=== PATIENT | female | born 1990 | race Caucasian/White ===

== ENCOUNTER 2016-10-17 07:55 | Inpatient (IN) | payer OTHER ==
[~2016-10-17] VITALS: Ht 165.1 cm; Wt 132.9 kg
[2016-10-17] MEDS ORDERED: PROAIR HFA8.5 GM INH (08:21)
[2016-10-17] MEDS ORDERED: PRENATAL TABLE1 EAC2 PO (08:22)
[2016-10-17] MEDS ORDERED: SLOW FE142 MG PO (08:23)
[2016-10-17 08:56] LABS: ABSOLUTE BASOPHIL COUNT 0.1 /CUMM (0.0-0.2); ABSOLUTE EOSINOPHIL COUNT 0.1 /CUMM (0.0-0.7); ABSOLUTE GRANULOCYTE CT 5.1 /CUMM (1.4-6.5); ABSOLUTE LYMPH COUNT 1.5 /CUMM (1.2-3.4); ABSOLUTE MONOCYTE COUNT 0.6 /CUMM (0.10-0.60); BASOPHIL % 0.9 % (0.0-2.0); EOSINOPHIL % 1.2 % (0-5); GRANULOCYTE % 69.2 % (42.2-75.2); HEMATOCRIT 36.6 % (37-47); MEAN CORPUSCULAR HGB 29.3 PG (27.0-31.0); MEAN CORPUSCULAR HGB CONC 34.2 G/DL (33.0-37.0); MEAN CORPUSCULAR VOLUME 85.5 FL (81.0-99.0); MEAN PLATELET VOLUME 8.5 FL (7.4-10.4); PLATELET COUNT 232 /CUMM (130-400); RED BLOOD CELL CT 4.28 /CUMM (4.20-5.40); WHITE BLOOD CELL COUNT 7.4 /CUMM (4.8-10.8)
--- NOTE | 2016-10-17 09:26 | PN- Obstetrical ---
Subjective Subjective: NO COMPLAINTS Objective Last 24 Hrs of Vital Signs/I&O Intake & Output 10/17 1600 10/17 0800 10/17 0000 Intake Total Output Total Balance Patient 293 lb Weight Physical Exam: PE OBESE WF ABD SOFT EFW 3700 [id number] Obstetric Exam Dilation (cm): 3 Effacement (%): 80 Station: 0 Membranes: intact Fluid: unknown Multiple Gestation? No Contractions: NONE Assessment/Plan Assessment/Plan ASSESS 41 WEEK PLAN PITOCIN
--- NOTE | 2016-10-17 16:14 | Labor & Delivery Summary ---
Delivery Summary Vaginal Delivery: Vaginal: vertex Episiotomy/Lacerations: Episiotomy/Lacerations: 1ST Type: 3 0 Repair: IN LAYERS Anesthesia: EPIDURAL Placenta: Placenta: spontanteous, normal, 3 vessel Anesthesia: block Additional Comments: WITHOUT MECONIUM [id number] DEGREE LACERATION . PLACENTA BY CCT INTACT HEAVY BLEEDING THAT DID NOT RESPOND TO MASSAGE METHERGINE GIVEN .A+
[2016-10-17] MEDS ORDERED: IBUPROFEN800 M1 PO (16:18)
[2016-10-17 16:27] VITALS: BP 126/57
[2016-10-18 08:50] LABS: ABSOLUTE BASOPHIL COUNT 0.2 /CUMM (0.0-0.2); ABSOLUTE EOSINOPHIL COUNT 0.2 /CUMM (0.0-0.7); ABSOLUTE GRANULOCYTE CT 6.2 /CUMM (1.4-6.5); ABSOLUTE LYMPH COUNT 1.8 /CUMM (1.2-3.4); ABSOLUTE MONOCYTE COUNT 0.9 /CUMM (0.10-0.60); EOSINOPHIL % 1.8 % (0-5); GRANULOCYTE % 67.7 % (42.2-75.2); MEAN CORPUSCULAR HGB 29.4 PG (27.0-31.0); MEAN CORPUSCULAR VOLUME 86.3 FL (81.0-99.0); MEAN PLATELET VOLUME 8.7 FL (7.4-10.4); PLATELET COUNT 224 /CUMM (130-400); RBC DISTRIBUTION WIDTH 15.8 % (11.5-14.5); RED BLOOD CELL CT 3.71 /CUMM (4.20-5.40); WHITE BLOOD CELL COUNT 9.2 /CUMM (4.8-10.8)
--- NOTE | 2016-10-18 10:21 | PN- Post Delivery/GYN ---
Subjective Subjective: Overal doing very well. With no complaints Ambulating, voiding, tolerating PO with no N/V. Pain controlled with PO meds. Lochia is minimal. Passing gas. well. Review of Systems: per above Objective Last 24 Hrs of Vital Signs/I&O Vital Signs Date Time Temp Pulse Resp B/P Pulse O2 O2 Flow FiO2 Ox Delivery Rate 10/18 98.0 101 18 114/60 99% Physical Exam: Gen: NAD Heart: RRR, S1 and S2 Lungs: CTAB Abd: Good BS. Non tender. Fundus below umbilicus Ext: +1 pitting edema. No erythema Current Medications: Current Medications Sig/Shane Start time Last Medication Dose Route Stop Time Status Admin Acetaminophen 650 MG Q4P PRN 10/17 1615 AC PO Docusate Sodium 100 MG BID PRN 10/17 1615 AC PO Enoxaparin Sodium 40 MG DAILY 10/18 1000 AC 10/18 SC 0849 Hydroxyzine HCl 50 MG AT BEDTIME NEED.. 10/17 1615 AC PO Ibuprofen 800 MG Q6P PRN 10/17 1615 AC 10/18 PO 0848 Lactated Ringer's 1,000 ML Q8H 10/17 0830 DC 10/17 IV 1321 Magnesium Hydroxide 30 ML DAILY PRN 10/17 1615 DC PO 10/18 1001 Methylergonovine 0.2 MG STAT STA 10/17 1614 DC 10/17 Maleate IM 10/17 1615 1607 Oxycodone/ 1 TAB Q3P PRN 10/17 1615 AC Acetaminophen PO Oxytocin 20 UNITS Q5H 10/17 1615 DC 10/17 Lactated Ringer's 1,000 ML IV 10/17 2114 1625 Oxytocin 30 UNITS PER PROTOCL 10/17 0830 DC 10/17 Lactated Ringer's 500 ML IV 0903 Senna 374 MG AT BEDTIME NEED.. 10/17 1615 AC PO 10/18 1616 Last 24 Hrs of Labs/Manjeet: Laboratory Tests 10/18/16 0645: CBC w Diff NO MAN DIFF REQ, RBC 3.71 L, MCV 86.3, MCH 29.4, RDW 15.8 H, MPV 8.7, Gran % 67.7, Lymphocytes % 19.2 L, Monocytes % 9.3, Eosinophils % 1.8, Basophils % 2.0, Absolute Granulocytes 6.2, Absolute Lymphocytes 1.8, Absolute Monocytes 0.9 H, Absolute Eosinophils 0.2, Absolute Basophils 0.2, PUBS MCHC 34.0 Microbiology 10/17 1258 URINE ROUT: Urine Culture - RES Assessment/Plan Assessment/Plan PPD#1 s/p , overall doing very well 1) Doing well Continue regular diet Continue to ambulate Continue to breastfeed Continue PO meds PRN for pain control 2) Prophx Continue lovenox Bowel regimen PRN Plan to discharge tomorrow Attending MD Review Statement Attending Statement Attending MD Statement: examined this patient, discussed with family, discussed with nursing
--- NOTE | 2016-10-19 08:46 | PN- Post Delivery/GYN ---
Subjective Subjective: Overal doing very well. With no complaints Ambulating, voiding, tolerating PO with no N/V. Pain controlled with PO meds. Lochia is minimal. Passing gas. No BM. well. Review of Systems: per above Objective Last 24 Hrs of Vital Signs/I&O Temp: 98.8 HR: 98 RR: 20 BP: 116/74 O2 sat: 97% Physical Exam: Gen: NAD Heart: RRR, S1 and S2 Lungs: CTAB Abd: Good BS. Non tender. Fundus below umbilicus Ext: +1 pitting edema. No erythema Current Medications: Current Medications Sig/Shane Start time Last Medication Dose Route Stop Time Status Admin Acetaminophen 650 MG Q4P PRN 10/17 161 AC PO Docusate Sodium 100 MG BID PRN 10/17 1615 AC PO Enoxaparin Sodium 40 MG DAILY 10/18 1000 AC 10/18 SC 0849 Hydroxyzine HCl 50 MG AT BEDTIME NEED.. 10/17 1615 AC PO Ibuprofen 800 MG .STK-MED ONE 10/18 2325 DC PO 10/18 2326 Ibuprofen 800 MG Q6P PRN 10/17 1615 AC 10/19 PO 0000 Magnesium Hydroxide 30 ML DAILY PRN 10/17 1615 DC PO 10/18 1001 Oxycodone/ 1 TAB Q3P PRN 10/17 1615 AC Acetaminophen PO Senna 374 MG AT BEDTIME NEED.. 10/17 1615 DC PO 10/18 1616 Assessment/Plan Assessment/Plan PPD#2 s/p , overall doing very well 1) Doing well Continue regular diet Continue to ambulate Continue to breastfeed Continue PO meds PRN for pain control 2) Prophx Continue lovenox Bowel regimen PRN Plan to discharge today. Instructions and precuations given to patient and family member. Voiced understanding. Attending MD Review Statement Attending Statement Attending MD Statement: examined this patient, discussed with family, discussed with nursing
== END 2016-10-19 08:50 | DRG 560 ==
LOC: GNO 07:55
PROVIDERS: ADMIT Specialist
PROC: 0HQ9XZZ Repair Perineum Skin, External Approach (ICD-10-PCS; principal; 2016-10-17)
PROC: 10E0XZZ Delivery of Products of Conception, External Approach (ICD-10-PCS; 2016-10-17)
PROC: 3E033VJ Introduction of Other Hormone into Peripheral Vein, Percutaneous Approach (ICD-10-PCS; 2016-10-17)
DX: O48.0 Post-term pregnancy (principal); Z3A.41 41 weeks gestation of pregnancy; Z37.0 Single live birth; O70.0 First degree perineal laceration during delivery
CPT/HCPCS: 81001; 87086; J1650; J2210; J7120

== ENCOUNTER 2018-03-15 07:54 | Emergency (ER) | payer OTHER ==
[~2018-03-15] VITALS: Ht 165.1 cm; Wt 119.3 kg
[~2018-03-15 07:54] MED LIST: IBUPROFEN800 M1 PO; PRENATAL TABLE1 EAC2 PO; PROAIR HFA8.5 GM INH; SLOW FE142 MG PO
--- NOTE | 2018-03-15 08:29 | ED GENERAL ADULT ---
History of Present Illness General Chief Complaint: General Adult Stated Complaint: DRANK TO MUCH CONTINUES TO PASS OUT AFTER VOMITING Source: patient, family Exam Limitations: no limitations Vital Signs & Intake/Output Vital Signs & Intake/Output Vital Signs Date Time Temp Pulse Resp B/P B/P Pulse O2 O2 Flow FiO2 Mean Ox Delivery Rate 03/15 1231 97.0 78 18 114/73 96 Room Air 03/15 1130 97.0 80 20 132/74 96 Room Air 03/15 0959 96.2 84 16 117/80 98 Room Air 03/15 0804 97.0 96 20 118/80 96 Room Air Allergies Coded Allergies: NO KNOWN ALLERGIES (10/17/16) Reconcile Medications Multivitamin (Daily Multiple Vitamin) 1 EACH TABLET 1 TAB PO DAILY VITAMIN SUPPORT (Reported) Triage Note: PT STATES SHE DRANK TOO MUCH ALCOHOL LAST NIGHT AND WAS MIXING. C/O VOMITING AND THEN PASSING OUT AFTERWARDS SINCE 0700 Triage Nurses Notes Reviewed? yes Onset: Abrupt Duration: day(s): Timing: recent history : No Patient currently breastfeeds: No HPI: 03/15/18 12:41 PM 27-year-old female presents to the emergency department for several episode of vomiting followed by syncope. The story is confirmed by her . She denies any chest pain or shortness of breath. She received IV fluid in the Emergency Department. Currently she is asymptomatic. Labs and EKGs were normal. The first EKG showed first-degree AV block. Second EKG was normal. No shortness of breath. No headache. She says she drank wine and smokes cigarettes last night. She also did fireball shots. She did receive IV fluid in the Emergency Department. Past History Travel History Traveled to [place] past 21 day No Medical History Any Pertinent Medical History? see below for history Pneumonia Vaccine: 06/16/13 Influenza Vaccine: 06/16/13 Surgical History Surgical History: non-contributory Psychosocial History What is your primary language Arabic Tobacco Use: Current Not Daily ETOH Use: occasional use Illicit Drug Use: denies illicit drug use Family History Hx Contributory? No Review of Systems Review of Systems Constitutional: Denies: fever. EENTM: Reports: no symptoms. Respiratory: Denies: short of breath. Cardiovascular: Reports: syncope. Denies: chest pain. GI: Reports: vomiting. Denies: abdominal pain. Genitourinary: Reports: no symptoms. Musculoskeletal: Reports: no symptoms. Skin: Reports: no symptoms. Neurological/Psychological: Denies: headache. Hematologic/Endocrine: Reports: no symptoms. Immunologic/Allergic: Reports: no symptoms. Physical Exam Physical Exam General Appearance: well developed/nourished, alert, awake, anxious, mild distress Head: atraumatic, normal appearance Eyes: Bilateral: normal appearance, PERRL, EOMI. Ears, Nose, Throat: normal pharynx, normal ENT inspection Neck: normal inspection, supple, full range of motion Respiratory: normal breath sounds, chest non-tender, no respiratory distress Cardiovascular: regular rate/rhythm Peripheral Pulses: 4+ radial (R), 4+ radial (L) Gastrointestinal: soft, non-tender Back: normal range of motion Extremities: no edema Neurologic/Psych: no motor/sensory deficits, awake, alert, oriented x 3 Skin: intact, normal color, warm/dry Core Measures ACS in differential dx? No CVA/TIA Diagnosis: No Sepsis Present: No Sepsis Focused Exam Completed? No Progress Differential Diagnoses I considered the following diagnoses in my evaluation of the patient: [ Dysrhythmia, anemia, ectopic , pulmonary embolism, subarachnoid hemorrhage] Plan of Care: Orders Procedure Date/time Status EKG 03/15 1220 Active Add-on Test (ER Only) 03/15 0850 Active URINE DRUG SCREEN FOR ER ONLY 03/15 0848 Complete LIPASE 03/15 0848 Complete HUMAN BETA HCG SCREEN 03/15 0848 Complete ETHANOL 03/15 0848 Complete COMPREHENSIVE METABOLIC PANEL 03/15 0848 Complete CBC WITHOUT DIFFERENTIAL 03/15 0848 Complete EKG 03/15 0848 Active Laboratory Tests 03/15/18 1042: Urine Opiates Screen < 100, Methadone Screen < 40, Barbiturate Screen < 60, Ur Phencyclidine Scrn < 6.00, Amphetamines Screen < 100, U Benzodiazepines Scrn < 85, Urine Cocaine Screen < 50, Urine Cannabis Screen < 5.00 03/15/18 0951: Anion Gap 11, Estimated GFR > 60, BUN/Creatinine Ratio 18.6, Glucose 106 H, Calcium 9.7, Total Bilirubin 0.3, AST 28, ALT 35, Alkaline Phosphatase 85, Total Protein 7.6, Albumin 4.5, Globulin 3.1, Albumin/Globulin Ratio 1.5, Lipase 50, Total Beta HCG NEGATIVE, CBC w Diff NO MAN DIFF REQ, RBC 4.82, MCV 81.9, MCH 27.0, MCHC 32.9 L, RDW 14.6 H, MPV 7.9, Gran % 81.6 H, Lymphocytes % 11.4 L, Monocytes % 6.2, Eosinophils % 0.6, Basophils % 0.2, Absolute Granulocytes 6.3, Absolute Lymphocytes 0.9 L, Absolute Monocytes 0.5, Absolute Eosinophils 0, Absolute Basophils 0, Serum Alcohol < 10.0 Initial ED EKG: NSR, first degree AV block Departure Departure Disposition: HOME OR SELF CARE Condition: Stable Clinical Impression Primary Impression: Vomiting Secondary Impressions: Alcohol abuse, Syncope Referrals: Gaviota Mcgraw APRN (PCP/Family) Departure Forms: Customer Survey General Discharge Information Comments The patient received IV fluids in the ED. First EKG showed first-degree AV block. This was repeated and was normal. Labs essentially unremarkable. The patient felt better. She had no headache. No shortness of breath. test was negative. Suspect adverse reaction to alcohol. Vasovagal syncope. Status post vomiting. She will drink fluids avoid alcohol and follow-up with her doctor this week. No history of CHF No anemia EKG is normal No shortness of breath No hypotension Critical Care Note Critical Care Note Critical Care Time: non-applicable
[2018-03-15 09:59] LABS: ABSOLUTE BASOPHIL COUNT 0 /CUMM (0.0-0.2); ABSOLUTE EOSINOPHIL COUNT 0 /CUMM (0.0-0.7); ABSOLUTE GRANULOCYTE CT 6.3 /CUMM (1.4-6.5); ABSOLUTE LYMPH COUNT 0.9 /CUMM (1.2-3.4); ABSOLUTE MONOCYTE COUNT 0.5 /CUMM (0.10-0.60); BASOPHIL % 0.2 % (0.0-2.0); EOSINOPHIL % 0.6 % (0-5); GRANULOCYTE % 81.6 % (42.2-75.2); HEMATOCRIT 39.5 % (37-47); MEAN CORPUSCULAR HGB CONC 32.9 G/DL (33.0-37.0); MEAN CORPUSCULAR VOLUME 81.9 FL (81.0-99.0); MEAN PLATELET VOLUME 7.9 FL (7.4-10.4); PLATELET COUNT 324 /CUMM (130-400); RBC DISTRIBUTION WIDTH 14.6 % (11.5-14.5); RED BLOOD CELL CT 4.82 /CUMM (4.20-5.40); WHITE BLOOD CELL COUNT 7.7 /CUMM (4.8-10.8)
[2018-03-15] MEDS ORDERED: DAILY MULTIPLE1 EACH PO (10:06)
[2018-03-15 12:31] VITALS: BP 114/73
== END 2018-03-15 12:55 ==
LOC: ERH 07:54
PROVIDERS: Emergency Medicine
DX: R11.10 Vomiting, unspecified (principal); R55 Syncope and collapse; F10.10 Alcohol abuse, uncomplicated
CPT/HCPCS: 80307; 93005; 93010; G0480